=== PATIENT | male | born 1955 | race Two or more races ===

== ENCOUNTER 2021-08-11 18:26 | Emergency (ER) | payer OTHER ==
[~2021-08-11] VITALS: Ht 175.3 cm; Wt 76.7 kg
[2021-08-11] MEDS ORDERED: LOSARTAN POTASS50 MG (18:50)
[2021-08-11] MEDS ORDERED: ATORVASTATIN CA20 MG (18:52)
== END 2021-08-12 | disposition home or self-care (01) ==
LOC: ER 18:26
DX: R42 Dizziness and giddiness (principal)

== ENCOUNTER 2022-05-07 08:41 | Day surgery (SDC) | payer OTHER ==
[~2022-05-07] VITALS: Ht 12.7 cm; Wt 85.7 kg
[~2022-05-07 08:41] MED LIST: AMLODIPINE BESYL5 MG PO; ATORVASTATIN CA20 MG; GLUMETZA500 MG PO; HYDROCHLOROTH12.5 MG PO; LOSARTAN POTAS100 MG PO; LOSARTAN POTASS50 MG; ZETIA10 MG PO
== END 2022-05-07 15:35 | disposition home or self-care (01) ==
LOC: CIR.AMB 08:41
PROVIDERS: ATTEND Orthopaedic Surgery
DX: S46.322A Laceration of muscle, fascia and tendon of triceps, left arm, initial encounter (principal); Z20.822 Contact with and (suspected) exposure to COVID-19; S52.022A Displaced fracture of olecranon process without intraarticular extension of left ulna, initial encounter for closed fracture; I10 Essential (primary) hypertension; E11.9 Type 2 diabetes mellitus without complications; Z79.84 Long term (current) use of oral hypoglycemic drugs